=== PATIENT | female | born 1955 | race Asian ===

== ENCOUNTER 2018-06-19 22:22 | Inpatient (IN) | payer MEDICARE ==
[~2018-06-19] VITALS: Ht 154.9 cm; Wt 57.9 kg
[~2018-06-19 22:22] MED LIST: BLOOD PRESSURE
[2018-06-19] MEDS ORDERED: DEXTROSE 50%, 50ML SYRINGE IVPush ONE (22:30)
--- NOTE | 2018-06-19 22:39 | NUR ---
PT BIB [facility] FROM HOME FOR LOW BLOOD SUGAR, [facility] STATES PT FOUND POSTURING, UNRESPONSIVE WITH A BLOOD SUGAR OF 30. GIVEN D10 25MG BRINGING SECOND BS CHECK TO 191. UPON ARRIVAL TO ER PT A&OX4 WITH NOTED RIGHT SIDE FACIAL DROOP BUT FOUND IS REMAINING DEFICIT FROM STROKE 2 YEARS AGO. PT REPORTING STARTING NEW DIABETIC MED GLIPERIDE 3 DAYS AGO. CONNECTED TO ALL MONITORS, HTN NOTED, OTHER VSS. MD TO BEDSIDE FOR ASSESSMENT. ORDERS RECEIVED AT THIS TIME. TO BEDSIDE. CALL LIGHT WITHIN REACH. AWAITING TESTING
--- NOTE | 2018-06-19 22:56 | NUR ---
REPORT GIVEN TO MARTINA HAWLEY
[2018-06-19 23:32] LABS: BASOPHILS # (AUTO) 0.07 x10^3/uL (0-0.1); BASOPHILS % (AUTO) 1 % (0-1); EOSINOPHILS # (AUTO) 0.11 x10^3/uL (0-0.4); EOSINOPHILS % (AUTO) 2 % (1-7); LYMPHOCYTES # (AUTO) 2.21 x10^3/uL (1-3.4); LYMPHOCYTES % (AUTO) 31 % (22-44); MEAN CORPUSCULAR HEMOGLOBIN 29.3 pg (27.0-34.8); MEAN CORPUSCULAR HGB CONC 32.7 g/dL (32.4-35.8); MEAN CORPUSCULAR VOLUME 89.7 fL (80-100); MEAN PLATELET VOLUME 9.3 fL (7.4-10.4); MONOCYTES # (AUTO) 0.38 x10^3/uL (0.2-0.8); MONOCYTES % (AUTO) 5 % (2-9); NEUTROPHILS % (AUTO) 61 % (42-75); PLATELET COUNT 305 x10^3/uL (130-400); RED BLOOD COUNT 4.78 x10^6/uL (3.82-5.3); RED CELL DISTRIBUTION WIDTH 13.1 % (9.6-15.2)
[2018-06-19 23:33] LABS: MD NO
[2018-06-19] MEDS ORDERED: POTASSIUM CHLORIDE 40 MEQ in D5%-0.9% NACL 1,000 ML IV ONE (23:34)
--- NOTE | 2018-06-19 23:38 | NUR ---
FSBS 12. PT A0X4. INFORMED. D50 GIVEN
[2018-06-20] MEDS ORDERED: DEXTROSE 50%, 50ML SYRINGE ONE
[2018-06-20 00:04] LABS: HEMOGLOBIN A1C 11.4 % (4.2-6.3)
[2018-06-20 00:05] LABS: ALANINE AMINOTRANSFERASE 21 U/L (12-78); ALBUMIN 3.4 g/dL (3.4-5.0); ANION GAP 12 mmol/L (5-15); CALCIUM 8.4 mg/dL (8.5-10.1); CHLORIDE 109 mmol/L (98-107)
[2018-06-20 00:10] LABS: ALKALINE PHOSPHATASE 85 U/L (45-117); BILIRUBIN,TOTAL < 0.1 mg/dL (0.2-1.0); TOTAL PROTEIN 6.7 g/dL (6.4-8.2); TROPONIN I < 0.015 ng/mL (0.000-0.045)
--- NOTE | 2018-06-20 00:12 | NUR ---
REPOT GIVEN TO JENNIFER HAWLEY. PT GIVEN CRACKERS PER OKAY FROM . PT ABLE TO EAT CRACKERS WITH EASE. NAD. AWAITING TRANSPORT AT THIS TIME.
[2018-06-20] MEDS ORDERED: LISI-170 PO (00:25)
[2018-06-20] MEDS ORDERED: GLYB5TAB3 PO (00:25)
[2018-06-20] MEDS ORDERED: METF500T17 PO (00:25)
[2018-06-20] MEDS ORDERED: HYDR25TA6 PO (00:25)
[2018-06-20] MEDS ORDERED: CARV3.12 PO (00:25)
[2018-06-20] MEDS ORDERED: CARB15DR76 EACH EAR (00:25)
[2018-06-20] MEDS ORDERED: ACETAMINOPHEN 325 MG TABLET PO PRN (00:30)
[2018-06-20] MEDS ORDERED: MAGNESIUM SULFATE PMX 2GM/50ML 50 ML IV ONE (00:30)
[2018-06-20 00:35] VITALS: BP 166/90
[2018-06-20] MEDS ORDERED: DEXTROSE 4 GM TAB.CHEW PO PRN (01:00)
[2018-06-20] MEDS ORDERED: GLUCAGON 1 MG IM PRN (01:00)
[2018-06-20] MEDS ORDERED: DEXTROSE 50%, 50ML SYRINGE IVPush PRN (01:00)
[2018-06-20 02:36] LABS: CULTURE INDICATED? YES; MICROSCOPIC AUTO
[2018-06-20] MEDS: D5%-0.45NACL+KCL 20MEQ 1,000 ML IV SCH ×3 (03:10→16:58)
[2018-06-20 05:48] LABS: CHLORIDE 114 mmol/L (98-107); CREATININE 1.08 mg/dL (0.55-1.02)
[2018-06-20 05:54] LABS: ANION GAP 9 mmol/L (5-15); CALCIUM 8.8 mg/dL (8.5-10.1)
[2018-06-20 08:02] VITALS: BP 136/83
[2018-06-20] MEDS: SODIUM CHLORIDE FLUSH 10ML SYR IVF SCH ×2 (10:25→22:08)
[2018-06-20 15:59] VITALS: BP 114/74
[2018-06-20 20:09] VITALS: BP 107/67
[2018-06-20] MEDS: CARVEDILOL 3.125 MG TABLET PO SCH (22:08)
[2018-06-20] MEDS: INSULIN LISPRO 100 UNITS/ML, PEN SQ-INSULIN SCH (22:08)
[2018-06-21 01:13] VITALS: BP 100/58
[2018-06-21] MEDS: INSULIN LISPRO 100 UNITS/ML, PEN SQ-INSULIN SCH ×5 (01:35→20:05)
[2018-06-21] MEDS: D5%-0.45NACL+KCL 20MEQ 1,000 ML IV SCH (02:23)
[2018-06-21 06:25] LABS: BASOPHILS # (AUTO) 0.04 x10^3/uL (0-0.1); BASOPHILS % (AUTO) 1 % (0-1); EOSINOPHILS # (AUTO) 0.14 x10^3/uL (0-0.4); EOSINOPHILS % (AUTO) 2 % (1-7); LYMPHOCYTES # (AUTO) 3.12 x10^3/uL (1-3.4); LYMPHOCYTES % (AUTO) 48 % (22-44); MD NO; MEAN CORPUSCULAR HEMOGLOBIN 29.8 pg (27.0-34.8); MEAN CORPUSCULAR HGB CONC 32.7 g/dL (32.4-35.8); MEAN PLATELET VOLUME 8.7 fL (7.4-10.4); MONOCYTES # (AUTO) 0.47 x10^3/uL (0.2-0.8); MONOCYTES % (AUTO) 7 % (2-9); NEUTROPHILS # (AUTO) 2.73 x10^3/uL (1.8-6.8); NEUTROPHILS % (AUTO) 42 % (42-75); PLATELET COUNT 255 x10^3/uL (130-400); RED BLOOD COUNT 4.32 x10^6/uL (3.82-5.3); RED CELL DISTRIBUTION WIDTH 13.2 % (9.6-15.2)
[2018-06-21 07:31] VITALS: BP 127/69
[2018-06-21] MEDS: SODIUM CHLORIDE FLUSH 10ML SYR IVF SCH ×2 (07:58→20:15)
[2018-06-21] MEDS: LISINOPRIL 20 MG TABLET PO SCH (07:59)
[2018-06-21] MEDS: CARVEDILOL 3.125 MG TABLET PO SCH ×2 (07:59→20:15)
[2018-06-21] MEDS: HYDROCHLOROTHIAZIDE 25 MG TABLET PO SCH (07:59)
[2018-06-21 08:11] LABS: ANION GAP 6 mmol/L (5-15); CALCIUM 8.8 mg/dL (8.5-10.1); CHLORIDE 114 mmol/L (98-107); CREATININE 0.86 mg/dL (0.55-1.02)
[2018-06-21 12:45] VITALS: BP 188/99
[2018-06-21] MEDS: metFORMIN 500 MG TABLET PO SCH (16:36)
[2018-06-21 20:00] VITALS: BP 149/85
[2018-06-22 01:35] VITALS: BP 148/82
[2018-06-22 05:37] LABS: BASOPHILS # (AUTO) 0.04 x10^3/uL (0-0.1); BASOPHILS % (AUTO) 1 % (0-1); EOSINOPHILS # (AUTO) 0.17 x10^3/uL (0-0.4); EOSINOPHILS % (AUTO) 2 % (1-7); LYMPHOCYTES # (AUTO) 2.94 x10^3/uL (1-3.4); LYMPHOCYTES % (AUTO) 40 % (22-44); MD NO; MEAN CORPUSCULAR HEMOGLOBIN 30.2 pg (27.0-34.8); MEAN CORPUSCULAR HGB CONC 33.8 g/dL (32.4-35.8); MEAN CORPUSCULAR VOLUME 89.3 fL (80-100); MEAN PLATELET VOLUME 8.6 fL (7.4-10.4); MONOCYTES # (AUTO) 0.51 x10^3/uL (0.2-0.8); MONOCYTES % (AUTO) 7 % (2-9); NEUTROPHILS # (AUTO) 3.69 x10^3/uL (1.8-6.8); NEUTROPHILS % (AUTO) 50 % (42-75); PLATELET COUNT 270 x10^3/uL (130-400); RED BLOOD COUNT 4.46 x10^6/uL (3.82-5.3); RED CELL DISTRIBUTION WIDTH 12.9 % (9.6-15.2)
[2018-06-22 05:49] LABS: CHLORIDE 110 mmol/L (98-107)
[2018-06-22 06:07] LABS: ANION GAP 7 mmol/L (5-15); CALCIUM 9.3 mg/dL (8.5-10.1); CREATININE 0.94 mg/dL (0.55-1.02)
[2018-06-22] MEDS: CARVEDILOL 3.125 MG TABLET PO SCH (07:46)
[2018-06-22] MEDS: HYDROCHLOROTHIAZIDE 25 MG TABLET PO SCH (07:46)
[2018-06-22] MEDS: SODIUM CHLORIDE FLUSH 10ML SYR IVF SCH (07:46)
[2018-06-22] MEDS: metFORMIN 500 MG TABLET PO SCH (07:46)
[2018-06-22] MEDS: LISINOPRIL 20 MG TABLET PO SCH (07:46)
[2018-06-22 07:55] VITALS: BP 155/88
[2018-06-22] MEDS: INSULIN LISPRO 100 UNITS/ML, PEN SQ-INSULIN SCH ×2 (08:06→11:00)
[2018-06-22 12:20] VITALS: BP 126/86
== END 2018-06-22 16:57 | disposition left against medical advice (07) | DRG 682 ==
LOC: ED 23:58 → INTOOBSV 23:59 → EDIP 23:59 → 3NE 06-20 00:31 → OBSVTOIN 06-21 09:49
PROVIDERS: ADMIT Internal Medicine; ATTEND Internal Medicine
DX: N17.0 Acute kidney failure with tubular necrosis (principal); G93.41 Metabolic encephalopathy; E11.649 Type 2 diabetes mellitus with hypoglycemia without coma; I10 Essential (primary) hypertension; I69.392 Facial weakness following cerebral infarction; Z79.82 Long term (current) use of aspirin; Z79.84 Long term (current) use of oral hypoglycemic drugs; Z79.899 Other long term (current) drug therapy; Z91.14 Patient's other noncompliance with medication regimen; I69.920 Aphasia following unspecified cerebrovascular disease; Z53.21 Procedure and treatment not carried out due to patient leaving prior to being seen by health care provider
CPT/HCPCS: 36415; 80048; 80053; 81001; 82962; 83036; 83735; 84100; 84484; 85025; 87086; 93005; 96374; 99291; G0378; J3480; J7042; J1815; J3475

== ENCOUNTER 2019-09-14 20:16 | Emergency (ER) | payer MEDICARE ==
[~2019-09-14] VITALS: Ht 154.9 cm; Wt 54.0 kg
[~2019-09-14 20:16] MED LIST changes: +CARB15DR76 EACH EAR; +CARV3.12 PO; +GLYB5TAB3 PO; +HYDR25TA6 PO; +LISI-170 PO; +METF500T17 PO
[2019-09-14] MEDS ORDERED: LABETALOL 5MG/ML, 20ML IVPush STA (20:31)
--- NOTE | 2019-09-14 20:47 | NUR ---
PT RESTINGI N BED, NO COMPLAINTS AT THIS TIME, HX DIABETES, HTN AND BRAIN TUMORS, NON-COMPLIANT WITH MEDICATION.
[2019-09-14] MEDS ORDERED: LABETALOL 5MG/ML, 20ML ONE (20:54)
[2019-09-14 20:59] LABS: BASOPHILS # (AUTO) 0.02 x10^3/uL (0-0.1); BASOPHILS % (AUTO) 0 % (0-1); EOSINOPHILS # (AUTO) 0.11 x10^3/uL (0-0.4); EOSINOPHILS % (AUTO) 1 % (1-7); LYMPHOCYTES # (AUTO) 1.62 x10^3/uL (1-3.4); LYMPHOCYTES % (AUTO) 19 % (22-44); MD NO; MEAN CORPUSCULAR HEMOGLOBIN 29.6 pg (27.0-34.8); MEAN CORPUSCULAR HGB CONC 33.3 g/dL (32.4-35.8); MEAN CORPUSCULAR VOLUME 88.7 fL (80-100); MEAN PLATELET VOLUME 8.5 fL (7.4-10.4); MONOCYTES # (AUTO) 0.59 x10^3/uL (0.2-0.8); MONOCYTES % (AUTO) 7 % (2-9); NEUTROPHILS # (AUTO) 6.43 x10^3/uL (1.8-6.8); NEUTROPHILS % (AUTO) 73 % (42-75); PLATELET COUNT 249 x10^3/uL (130-400); RED BLOOD COUNT 4.65 x10^6/uL (3.82-5.3); RED CELL DISTRIBUTION WIDTH 13.6 % (9.6-15.2)
[2019-09-14] MEDS ORDERED: SODIUM CHLORIDE 0.9% 1,000ML IVBOLUS ONE (21:00)
[2019-09-14] MEDS ORDERED: SODIUM CHLORIDE FLUSH 10ML SYR IVF ONE (21:00)
[2019-09-14 21:12] LABS: ALANINE AMINOTRANSFERASE 16 U/L (12-78); ALBUMIN 3.3 g/dL (3.4-5.0); ANION GAP 6 mmol/L (5-15); CALCIUM 8.6 mg/dL (8.5-10.1); CHLORIDE 106 mmol/L (98-107); CREATININE 1.01 mg/dL (0.55-1.02)
[2019-09-14 21:14] LABS: ALKALINE PHOSPHATASE 132 U/L (45-117); BILIRUBIN,TOTAL 0.4 mg/dL (0.2-1.0); TOTAL PROTEIN 7.2 g/dL (6.4-8.2)
[2019-09-15 00:47] VITALS: BP 164/78
== END 2019-09-14 23:32 | disposition home or self-care (01) ==
LOC: ED 23:01
DX: I10 Essential (primary) hypertension (principal); R51 Headache; H92.01 Otalgia, right ear; Z76.0 Encounter for issue of repeat prescription; R94.31 Abnormal electrocardiogram [ECG] [EKG]; E11.9 Type 2 diabetes mellitus without complications; Z86.73 Personal history of transient ischemic attack (TIA), and cerebral infarction without residual deficits
CPT/HCPCS: 36415; 80053; 85025; 93005; 96374; 99285; J7030

== ENCOUNTER 2019-09-15 08:09 | Emergency (ER) | payer MEDICARE ==
[~2019-09-15] VITALS: Ht 154.9 cm; Wt 54.9 kg
--- NOTE | 2019-09-15 08:36 | NUR ---
FIRST CONTACT WITH PT. PT C/O HIGH BLOOD PRESSURE WITH DELONG FOUR DAYS. SEEN HERE FOR SAME LAST NIGHT. PT'S AOX4. RESPS EVEN AND UNLABORED. BP/SPO2 MONITORS IN PLACE. CALL LIGHT WITHIN REACH. PT DENIES CP/SOB.
--- NOTE | 2019-09-15 09:15 | NUR ---
PT REQUESTING PAIN MED FOR DELONG. RESIDENT NOTIFIED AT THIS TIME.
[2019-09-15] MEDS ORDERED: ACETAMINOPHEN 500 MG TABLET ONE (09:16)
--- NOTE | 2019-09-15 09:19 | NUR ---
PT MEDICATED PER [facility]. PT TOLERATED WELL. PT'S AOX4. RESPS EVEN AND UNLABORED.
[2019-09-15] MEDS ORDERED: PROCHLORPERAZINE 5 MG/ML, 2ML IVPush ONE (09:30)
[2019-09-15] MEDS ORDERED: SUMATRIPTAN 6MG/0.5ML SQ ONE ×2 (09:30)
[2019-09-15] MEDS ORDERED: ACETAMINOPHEN 500 MG TABLET PO ONE (09:30)
[2019-09-15] MEDS ORDERED: PROCHLORPERAZINE 5 MG/ML, 2ML ONE (09:30)
--- NOTE | 2019-09-15 09:47 | NUR ---
THIS RN ATTEMPTED TO START PIV X 2 WITH NO SUCCESS. PT MEDICATED(SUBQ) PER [facility] AT THIS TIME. PT TOLERATED WELL.
--- NOTE | 2019-09-15 10:04 | NUR ---
REINIER HAWLEY AT BEDSIDE TO JIAN WOLFE AT THIS TIME.
--- NOTE | 2019-09-15 10:12 | NUR ---
PT MEDICATED PER [facility]. PT TOLERATED WELL. PT'S AOX4. RESPS EVEN AND UNLABORED.
--- NOTE | 2019-09-15 10:20 | NUR ---
PT AMB TO BR WITH STEADY GAIT.
--- NOTE | 2019-09-15 10:28 | NUR ---
PT TO CT AT THIS TIME.
--- NOTE | 2019-09-15 10:51 | NUR ---
PT BACK TO ROOM FROM CT. WARM BLANKET GIVEN. PT'S AOX4. RESPS EVEN AND UNLABORED.
[2019-09-15] MEDS ORDERED: LABETALOL 5MG/ML, 20ML IVPush ONE (11:30)
[2019-09-15] MEDS ORDERED: LABETALOL 5MG/ML, 20ML ONE (11:33)
--- NOTE | 2019-09-15 11:39 | NUR ---
PT MEDICATED PER [facility]. PT TOLERATED WELL. PT'S AOX4. RESPS EVEN AND UNLABORED.
--- NOTE | 2019-09-15 12:18 | NUR ---
PT SLEEPING IN GURNEY. RESPS EVEN AND UNLABORED. FAMILY AT BEDSIDE.
[2019-09-15 13:28] VITALS: BP 141/79
== END 2019-09-15 13:31 | disposition home or self-care (01) ==
LOC: ED 09:56
DX: I10 Essential (primary) hypertension (principal); R51 Headache; E11.9 Type 2 diabetes mellitus without complications; Z87.891 Personal history of nicotine dependence
CPT/HCPCS: 70450; 96372; 96374; 96375; 99285; J0780; J3030